=== PATIENT | female | born 1995 | race Caucasian/White ===

== ENCOUNTER 2019-09-14 08:45 | Inpatient (IN) | payer OTHER ==
[2019-09-14] MEDS ORDERED: LIDOCAINE 1% INJ-PF (10 MG/ML) 30 ML SDV ONE (09:37)
[2019-09-14] MEDS ORDERED: MISOPROSTOL 0.2 MG TABLET ONE (09:37)
[2019-09-14] MEDS ORDERED: OXYTOCIN 10 UNIT/ML VIAL ONE (09:37)
[2019-09-14] MEDS ORDERED: OXYTOCIN/NORMAL SALINE 20 UNIT/1,000 ML RTUINJ ONE (09:37)
[2019-09-14 09:51] LABS: ABSOLUTE BASOPHILS # (AUTO) 0.1 10^3/uL (0.0-0.2); ABSOLUTE EOSINOPHILS # (AUTO) 0.1 10^3/uL (0.0-0.6); ABSOLUTE LYMPHOCYTES (AUTO) 3.2 10^3/uL (0.5-4.7); ABSOLUTE MONOCYTES (AUTO) 0.7 10^3/uL (0.1-1.4); ABSOLUTE NEUT (AUTO) 10.2 10^3/uL (1.7-8.2); BASOPHILS % (AUTO) 0.4 % (0-2); EOSINOPHILS % (AUTO) 0.7 % (0-6); HEMATOCRIT 37.2 % (36.0-47.0); HEMOGLOBIN 12.9 g/dL (12.0-15.5); LYMPHOCYTES % (AUTO) 22.3 % (13-45); MEAN CORPUSCULAR HEMOGLOBIN 32.3 pg (27.0-33.4); MEAN CORPUSCULAR HGB CONC 34.8 g/dL (32.0-36.0); MEAN CORPUSCULAR VOLUME 93 fl (80-97); MONOCYTES % (AUTO) 4.7 % (3-13); PLATELET COUNT 315 10^3/uL (150-450); RED CELL DISTRIBUTION WIDTH 14.5 % (11.5-14.0); SEGMENTED NEUTROPHILS % (AUTO) 71.9 % (42-78); TOTAL CELLS COUNTED % (AUTO) 100 %; WHITE BLOOD COUNT 14.2 10^3/uL (4.0-10.5)
[2019-09-14] MEDS ORDERED: ACETAMINOPHEN WITH CODEINE #3 TABLET ONE (10:05)
--- NOTE | 2019-09-14 10:49 | Admission Physical ---
Datetime Report Generated by CPN: 09/14/2019 10:49 CURRENT ADMISSION Chief Complaint: Uterine Contractions Indication for Induction: Not Applicable Admit Impression : Term, Intrauterine ; Active Labor Admit Impression- Other: 490 cervix per RN on arrival with SROM Admit Plan: Admit to Unit; Initiate Labor Protocol Admit Plan- Other: GBS neg OBSTETRICAL HISTORY EDC: 09/26/2019 00:00 : 1 Para: 0 Term: 0 : 0 SAB: 0 IAB: 0 Ectopic: 0 Livin Cesareans: 0 VBACs: 0 Multiple Births: 0 PHYSICAL EXAM General: Normal HEENT: Deferred Neurologic: Normal Thyroid: Deferred Heart: Normal Lungs: Normal Breast: Deferred Back: Deferred Abdomen: Normal Genitourinary Exam: Normal Extremities: Normal DTRs: Deferred Pelvic Type: Adequate FETUS A EGA: 38.2 Monitoring: External US FHR- Baseline: 155 Variability: Moderate 6-25bpm Accelerations: 15X15 Decelerations: None FHR Category: Category I Presentation: Vertex Admit Comment: Transfer 32 wks from [place], do not have records available Pt reports adequate care JAMES by LMP 09/26/19, c/w 6 wk sono GBS neg PLANS FOR LABOR AND DELIVERY Labor and Delivery: None Pain Management: Medications; Epidural Feeding Preference: Breast Benefit of Breast Feed Discussed: Yes Circumcision: Yes INFORMED CONSENT Assignment: Jen Crocker MD Signature: with User ID: Marge : with User ID: Marge
[2019-09-14] MEDS ORDERED: MEASLES,MUMPS&RUBELLA VACC/PF 0.5 ML VIAL SUBCUT PRN (11:02)
[2019-09-14] MEDS ORDERED: DIPH/PERTUSS(ACELL)/TETANUS VAC/PF 0.5 ML SYR (>=10YO) IM PRN (11:02)
[2019-09-14] MEDS ORDERED: OXYTOCIN/NORMAL SALINE 20 UNIT/1,000 ML RTUINJ IV PRN (11:02)
[2019-09-14] MEDS ORDERED: ZOLPIDEM TARTRATE 5 MG TABLET PO PRN (11:02)
[2019-09-14] MEDS ORDERED: DIBUCAINE 1% OINTMENT 28 GM TP PRN (11:02)
[2019-09-14] MEDS ORDERED: BENZOCAINE/MENTHOL AEROSOL SPRAY 56 ML TOP PRN (11:02)
[2019-09-14 11:21] LABS: APPEARANCE,URINE SLIGHTLY-CLOUDY; BILIRUBIN,URINE NEGATIVE (NEGATIVE); COLOR,URINE YELLOW; GLUCOSE, URINE NEGATIVE (NEGATIVE); KETONES,URINE 20 mg/dL (NEGATIVE); LEUKOCYTE ESTERASE,URINE NEGATIVE (NEGATIVE); NITRITE,URINE NEGATIVE (NEGATIVE); PROTEIN,URINE 30 mg/dL (NEGATIVE); URINE SPECIFIC GRAVITY 1.027; UROBILINOGEN,URINE NEGATIVE mg/dL (<2.0)
[2019-09-14 11:54] LABS: URINE AMPHETAMINES SCREEN NEGATIVE; URINE BARBITURATES SCREEN NEGATIVE; URINE BENZODIAZEPINES SCREEN NEGATIVE; URINE COCAINE SCREEN NEGATIVE; URINE MARIJUANA (THC) SCREEN NEGATIVE; URINE METHADONE SCREEN NEGATIVE; URINE PHENCYCLIDINE SCREEN NEGATIVE
--- NOTE | 2019-09-14 13:22 | Delivery Summary ---
Del Sum A-C Datetime Report Generated by CPN: 09/14/2019 13:21 DELIVERY PERSONNEL DELIVERY PERSONNEL: [id number] Delivery Doctor:: Ani Butts CNM Labor and Delivery Nurse:: Imani Yadav RNpiping blocker Nurse:: Sonam Byers RN Nursery Nurse:: Shara Bond RN MATERNAL INFORMATION Delivery Anesthesia: None Medications After Delivery: Pitocin Bolus-Please Comment; Pitocin Drip 20 Units/1000ml NSS; Cytotec 1000mcg Per Rectum/Vagina Meds After Delivery Comment: 20 Units Pitocin/1000ml NS Delivery QBL: 500 Maternal Complications: Precipitous Labor (<3hrs) Provider Comments: SVDVM over intact perineum, precipitous labor. OA to CHIDI, vigorous to mothers abd. Cord clamped after 2 min and cut per FOB, 3vc noted. Placenta spont via gordon. Laceration repairs as above. Mother and infant stable. QBL 500. Apgars 9,9. LABOR SUMMARY EDC: 09/26/2019 00:00 No. Babies in Womb: 1 Attempted: No Labor Anesthesia: None LABOR INFORMATION Reason for Induction: Not Applicable Onset of Labor: 09/14/2019 07:00 Complete Dilatation: 09/14/2019 09:32 Oxytocin: N/A Group B Beta Strep: Negative Antibiotics # of Doses: 0 Antibiotics Time of Last Dose: n/a Name of Antibiotic Given: n/a Steroids Given: None Reason Steroids Not Administered: Not Applicable MEMBRANES Membranes Rupture Method: Spontaneous Rupture of Membranes: 09/14/2019 09:06 Length of Rupture (hr): 0.60 Amniotic Fluid Color: Clear Amniotic Fluid Amount: Small Amniotic Fluid Odor: None STAGES OF LABOR Stage 1 hr: 2 Stage 1 min: 32 Stage 2 hr: 0 Stage 2 min: 10 Stage 3 hr: 0 Stage 3 min: 6 Total Time in Labor hr: 2 Total Time in Labor min: 48 VAGINAL DELIVERY Episiotomy: None Laceration #1: Vaginal Laceration Extension #1: Second Degree Other Laceration: left labial 2nd Degree Laceration Repair: Yes Laceration Repair Note: Labia repair with 3.0 chromic, lidocaine used 2.0 chromic for vaginal repair with lidocaine Sponge Count Correct: N/A Sharps Count Correct: N/A CSECTION DELIVERY Primary Indication: N/A Secondary Indication: N/A CSection Incidence: N/A Labor: N/A Elective: N/A CSection Incision: N/A BABY A INFORMATION Delivery Date/Time: 09/14/2019 09:42 Method of Delivery: Vaginal Nurse Controlled Delivery: No Born in Route : No : N/A Forceps: N/A Vacuum Extraction: N/A Shoulder Dystocia : No PRESENTATION/POSITION BABY A Presentation: Cephalic Cephalic Presentation: Vertex Vertex Position: Right Occipital Anterior Breech Presentation: N/A PLACENTA INFORMATION BABY A Placenta Delivery Time : 09/14/2019 09:48 Placenta Method of Delivery: Spontaneous Placenta Status: Delivered SCORES BABY A Heart Rate 1 min: >100 bpm Resp Effort 1 min: Good Cry Reflex Irritability 1 min: Cough or Sneeze or Pulls Away Muscle Tone 1 min: Active Motion Color 1 min: Body [place], Extremities Blue Resuscitation Effort 1 min: Tactile Stimulation SCORE 1 MIN: 9 Heart Rate 5 min: >100 bpm Resp Effort 5 min: Good Cry Reflex Irritability 5 min: Cough or Sneeze or Pulls Away Muscle Tone 5 min: Active Motion Color 5 min: Body [place], Extremities Blue Resuscitation Effort 5 min: Tactile Stimulation SCORE 5 MIN: 9 INFANT INFORMATION BABY A Gestational Age at Delivery: 38.2 Gestational Status: Early Term- 37- 38.6 Weeks Infant Outcome : Liveborn Infant Condition : Stable Sex: Male IDENTIFICATION BABY A Verification Date/Time: 09/14/2019 09:59 ID Band Number: [id number] Mother's Name Verified: Yes Infant RN Verifying : Eloisa Ramospin. C Kiron RN WEIGHT/LENGTH BABY A Infant Birthweight (gm): 3067 Weight (lb): 6 Infant Weight (oz): 12 CORD INFORMATION BABY A No. Cord Vessels: 3 Nuchal Cord : N/A Cord Blood Taken: Yes-For Storage (Mom's Blood type +) Infant Suction: None ASSESSMENT BABY A Infant Complications: None Physical Findings at Delivery: Within Normal Limits Infant Care By: BBAIDY RN Transferred To: Remains with Mother BABY B INFORMATION : N/A SIGNATURES Assignment: Jen Crocker MD Signature: with User ID: [email or web address] : with User ID: Marge : I was personally available for consultation and serving as supervising physician for the MLP.
[2019-09-14] MEDS ORDERED: IBUPROFEN 800 MG TABLET ONE (14:06)
[2019-09-14] MEDS: IBUPROFEN 800 MG TABLET PO SCH ×2 (14:08→22:14)
--- NOTE | 2019-09-14 15:59 | Warning Signs in Babies ---
VOD Warning Signs Datetime Report Generated by [facility]: 09/14/2019 15:58 VOD#608 -Warning Signs in Babies: Viewed with Parent(s)/Family (09/14/2019 15:57:Imani Yadav RN)
[2019-09-14] MEDS ORDERED: FERROUS SULFATE 325 MG TABLET PO ONE (18:03)
[2019-09-14] MEDS ORDERED: DOCUSATE SODIUM 100 MG CAPSULE ONE (18:03)
[2019-09-14] MEDS: FERROUS SULFATE 325 MG TABLET PO SCH (18:05)
[2019-09-14] MEDS: DOCUSATE SODIUM 100 MG CAPSULE PO SCH (18:05)
[2019-09-14] MEDS ORDERED: BENZOCAINE/MENTHOL AEROSOL SPRAY 56 ML ONE (19:21)
[2019-09-15] MEDS: IBUPROFEN 800 MG TABLET PO SCH ×3 (05:30→21:48)
[2019-09-15 07:09] LABS: ABSOLUTE EOSINOPHILS # (AUTO) 0.1 10^3/uL (0.0-0.6); ABSOLUTE LYMPHOCYTES (AUTO) 2.6 10^3/uL (0.5-4.7); ABSOLUTE MONOCYTES (AUTO) 0.6 10^3/uL (0.1-1.4); ABSOLUTE NEUT (AUTO) 9.3 10^3/uL (1.7-8.2); BASOPHILS % (AUTO) 0.2 % (0-2); EOSINOPHILS % (AUTO) 0.8 % (0-6); HEMATOCRIT 30.5 % (36.0-47.0); LYMPHOCYTES % (AUTO) 20.5 % (13-45); MEAN CORPUSCULAR HEMOGLOBIN 32.9 pg (27.0-33.4); MEAN CORPUSCULAR HGB CONC 34.8 g/dL (32.0-36.0); MEAN CORPUSCULAR VOLUME 94 fl (80-97); MONOCYTES % (AUTO) 5.1 % (3-13); PLATELET COUNT 250 10^3/uL (150-450); RED BLOOD COUNT 3.23 10^6/uL (3.72-5.28); RED CELL DISTRIBUTION WIDTH 14.7 % (11.5-14.0); SEGMENTED NEUTROPHILS % (AUTO) 73.4 % (42-78); TOTAL CELLS COUNTED % (AUTO) 100 %; WHITE BLOOD COUNT 12.6 10^3/uL (4.0-10.5)
[2019-09-15 07:17] LABS: HEMOGLOBIN 10.6 g/dL (12.0-15.5)
[2019-09-15] MEDS: SENNOSIDES/DOCUSATE 8.6-50 MG 1 EACH TABLET PO SCH (11:08)
[2019-09-15] MEDS: PRENATAL VITAMIN W DHA CAPSULE PO SCH (11:08)
[2019-09-15] MEDS: DOCUSATE SODIUM 100 MG CAPSULE PO SCH ×2 (11:08→18:04)
[2019-09-15] MEDS: FERROUS SULFATE 325 MG TABLET PO SCH ×2 (11:08→18:04)
--- NOTE | 2019-09-15 12:38 | PDOC PROGRESS REPORT ---
Subjective-OB Progress Note for:: 09/15/19 Subjective: Pt doing well, no concerns. She reports light bleeding, reg diet and voiding without difficulty. Physical Exam (OB) Vital Signs: Temp Pulse Resp BP Pulse Ox 97.5 F 65 16 108/73 99 09/15/19 07:57 09/15/19 07:57 09/15/19 07:57 09/15/19 07:57 09/15/19 07:57 Intake & Output 09/14/19 09/15/19 09/16/19 06:59 06:59 06:59 Weight 91.3 kg - Lochia Lochia Amount: Small 10-25 ml Lochia Color: Rubra/Red - Abdomen Description: Soft Hernia Present: No Fundal Description: Firm, Midline Fundal Height: u/u - u/2 Objective-Diagnostic Laboratory: 09/15/19 06:27 09/15/19 06:27 WBC 12.6 H RBC 3.23 L Hgb 10.6 L D Hct 30.5 L MCV 94 MCH 32.9 MCHC 34.8 RDW 14.7 H Plt Count 250 Seg Neutrophils % 73.4 Assessment and Plan(PN) - Assessment and Plan (1) Normal course Is this a current diagnosis for this admission?: Yes (2) Labor, precipitous, delivered Is this a current diagnosis for this admission?: Yes (3) Laceration, obstetrical, second degree Is this a current diagnosis for this admission?: Yes (4) Vaginal delivery Is this a current diagnosis for this admission?: Yes - Time Spent with Patient Time with patient: Less than 15 minutes Medications reviewed and adjusted accordingly: Yes - Disposition Anticipated Discharge: Home Within: within 24 hours
[2019-09-16] MEDS: IBUPROFEN 800 MG TABLET PO SCH (05:10)
[2019-09-16 07:48] VITALS: BP 113/70
--- NOTE | 2019-09-16 08:53 | PDOC DISCHARGE SUMMARY ---
Impression - Admit/DC Date/PCP Admission Date/Primary Care Provider: 09/14/19 09:11 Discharge Date: 09/16/19 - Discharge Diagnosis (1) Normal course Is this a current diagnosis for this admission?: Yes (2) Labor, precipitous, delivered Is this a current diagnosis for this admission?: Yes (3) Laceration, obstetrical, second degree Is this a current diagnosis for this admission?: Yes (4) Vaginal delivery Is this a current diagnosis for this admission?: Yes - Additional Information Resuscitation Status: Full Code Discharge Diet: Regular Discharge Activity: Activity As Tolerated, No Lifting Over 10 Pounds, No Lifting/Push/Pulling, No tub bath Referrals: [facility] [Provider Group] (Please call [facility] for a 4 week follow up. ) Prescriptions: Ibuprofen [Motrin 800 mg Tablet] 800 mg PO Q8HP PRN #60 tablet PRN Reason: Home Medications: Famotidine [Pepcid 20 mg Tablet] 20 mg PO DAILY 09/14/19 Vits96/Iron Fum/Folic [ Tablet] 1 each PO DAILY 09/14/19 Ibuprofen [Motrin 800 mg Tablet] 800 mg PO Q8HP PRN #60 tablet 09/16/19 HPI Gestational Age: 38 Reason(s) for Admission: Onset of Labor Procedures: NST Intrapartum Procedure(s): Spontaneous Vaginal Delivery Complication(s): Laceration-Vaginal, Laceration-Labial Laceration-Degree: 2nd Results Laboratory Results: WBC 12.6 10^3/uL (4.0-10.5) H 09/15/19 06:27 RBC 3.23 10^6/uL (3.72-5.28) L 09/15/19 06:27 Hgb 10.6 g/dL (12.0-15.5) L D 09/15/19 06:27 Hct 30.5 % (36.0-47.0) L 09/15/19 06:27 MCV 94 fl (80-97) 09/15/19 06:27 MCH 32.9 pg (27.0-33.4) 09/15/19 06:27 MCHC 34.8 g/dL (32.0-36.0) 09/15/19 06:27 RDW 14.7 % (11.5-14.0) H 09/15/19 06:27 Plt Count 250 10^3/uL (150-450) 09/15/19 06:27 Lymph % (Auto) 20.5 % (13-45) 09/15/19 06:27 [place] % (Auto) 5.1 % (3-13) 09/15/19 06:27 Eos % (Auto) 0.8 % (0-6) 09/15/19 06: Baso % (Auto) 0.2 % (0-2) 09/15/19 06:27 Absolute Neuts (auto) 9.3 10^3/uL (1.7-8.2) H 09/15/19 06:27 Absolute Lymphs (auto) 2.6 10^3/uL (0.5-4.7) 09/15/19 06:27 Absolute Monos (auto) 0.6 10^3/uL (0.1-1.4) 09/15/19 06:27 Absolute Eos (auto) 0.1 10^3/uL (0.0-0.6) 09/15/19 06:27 Absolute Basos (auto) 0.0 10^3/uL (0.0-0.2) 09/15/19 06:27 Seg Neutrophils % 73.4 % (42-78) 09/15/19 06:27 Urine Color YELLOW 09/14/19 09:00 Urine Appearance SLIGHTLY-CLOUDY 09/14/19 09:00 Urine pH 6.0 (5.0-9.0) 09/14/19 09:00 Ur Specific Newborn 1.027 09/14/19 09:00 Urine Protein 30 mg/dL (NEGATIVE) H 09/14/19 09:00 Urine Glucose (UA) NEGATIVE mg/dL (NEGATIVE) 09/14/19 09:00 Urine Ketones 20 mg/dL (NEGATIVE) H 09/14/19 09:00 Urine Blood NEGATIVE (NEGATIVE) 09/14/19 09:00 Urine Nitrite NEGATIVE (NEGATIVE) 09/14/19 09:00 Urine Bilirubin NEGATIVE (NEGATIVE) 09/14/19 09:00 Urine Urobilinogen NEGATIVE mg/dL (<2.0) 09/14/19 09:00 Ur Leukocyte Esterase NEGATIVE (NEGATIVE) 09/14/19 09:00 Urine WBC (Auto) 4 /HPF 09/14/19 09:00 Urine RBC (Auto) 3 /HPF 09/14/19 09:00 Squamous Epi Cells Auto 2 /HPF 09/14/19 09:00 Urine Mucus (Auto) MANY /LPF 09/14/19 09:00 Urine Ascorbic Acid NEGATIVE (NEGATIVE) 09/14/19 09:00 Urine Opiates Screen NEGATIVE 09/14/19 09:00 Urine Methadone Screen NEGATIVE 09/14/19 09:00 Ur Barbiturates Screen NEGATIVE 09/14/19 09:00 Ur Phencyclidine Scrn NEGATIVE 09/14/19 09:00 Ur Amphetamines Screen NEGATIVE 09/14/19 09:00 U Benzodiazepines Scrn NEGATIVE 09/14/19 09:00 Urine Cocaine Screen NEGATIVE 09/14/19 09:00 U Marijuana (THC) Screen NEGATIVE 09/14/19 09:00 Blood Type A POSITIVE 09/14/19 09:30 Antibody Screen NEGATIVE 09/14/19 09:30 Plan Plan of Treatment: f/u at [facility] 4 wks Time Spent: Less than 30 Minutes
[2019-09-16] MEDS: SENNOSIDES/DOCUSATE 8.6-50 MG 1 EACH TABLET PO SCH (10:09)
[2019-09-16] MEDS: FERROUS SULFATE 325 MG TABLET PO SCH (10:10)
[2019-09-16] MEDS: PRENATAL VITAMIN W DHA CAPSULE PO SCH (10:10)
[2019-09-16] MEDS: DOCUSATE SODIUM 100 MG CAPSULE PO SCH (10:10)
== END 2019-09-16 13:53 | disposition home or self-care (01) | DRG 807 ==
LOC: LC 08:45 → LR 09:11 → 2S 20:30
PROVIDERS: ADMIT Obstetrics & Gynecology; ATTEND Obstetrics & Gynecology
PROC: 10E0XZZ Delivery of Products of Conception, External Approach (ICD-10-PCS; principal; 2019-09-14)
PROC: 0KQM0ZZ Repair Perineum Muscle, Open Approach (ICD-10-PCS; 2019-09-14)
PROC: 3E0234Z Introduction of Serum, Toxoid and Vaccine into Muscle, Percutaneous Approach (ICD-10-PCS; 2019-09-16)
DX: O62.3 Precipitate labor (principal); O70.1 Second degree perineal laceration during delivery; Z37.0 Single live birth; Z3A.38 38 weeks gestation of pregnancy; Z23 Encounter for immunization
CPT/HCPCS: 36415; 80307; 81001; 85025; 86592; 86850; 86900; 86901; 90715; J2590; J3490

== ENCOUNTER 2020-03-06 10:09 | Emergency (ER) | payer OTHER ==
[2020-03-06] MEDS ORDERED: NORMAL SALINE 1000 ML 1,000 ML IV PRN (10:27)
[2020-03-06] MEDS ORDERED: METOCLOPRAMIDE HCL 10 MG TABLET PO ONE (10:27)
--- NOTE | 2020-03-06 10:30 | ER Document Report ---
ED Medical Screen (RME) - General Chief Complaint: Nausea/Vomiting Stated Complaint: NAUSEA/VOMITING,CHILLS Time Seen by Provider: 03/06/20 10:24 Primary Care Provider: ELLY CARCAMO MD [Primary Care Provider] - Follow up as needed Mode of Arrival: Ambulatory Information source: Patient Notes: 24-year-old female presents to ED for nausea and vomiting. She states she had a home test positive a week ago she been nausea and vomiting for week. She states last menstrual period was in December. She has not been told to get into the PRIMARY CARE NURSE as yet. I have ordered a IV fluids, Reglan, blood urine and transvaginal ultrasound. I have greeted and performed a rapid initial assessment of this patient. A comprehensive ED assessment and evaluation of the patient, analysis of test results and completion of medical decision making process will be conducted by an additional ED providers. - Related Data Allergies/Adverse Reactions: No Known Allergies Allergy (Verified 03/06/20 10:24) Physical Exam - Vital signs Vitals: Temp Pulse Resp BP Pulse Ox 98.3 F 104 H 18 130/87 H 97 03/06/20 10:16 03/06/20 10:16 03/06/20 10:16 03/06/20 10:16 03/06/20 10:16 Course - Vital Signs Vital signs: Temp Pulse Resp BP Pulse Ox 98.3 F 104 H 18 130/87 H 97 03/06/20 10:16 03/06/20 10:16 03/06/20 10:16 03/06/20 10:16 03/06/20 10:16 Doctor's Discharge - Discharge Referrals: ELLY CARCAMO MD [Primary Care Provider] - Follow up as needed
--- NOTE | 2020-03-06 10:50 | ER Document Report ---
ED General - General Chief Complaint: Nausea/Vomiting Stated Complaint: NAUSEA/VOMITING,CHILLS Time Seen by Provider: 03/06/20 10:24 Primary Care Provider: ELLY CARCAMO MD [Primary Care Provider] - Follow up as needed Mode of Arrival: Ambulatory Notes: 24-year-old G2, P1 female 5 months presents with abdominal pressure queasiness nausea vomiting intolerance of p.o. for almost a week now. Positive test 7 days ago. She did not have any control methods and m issed her appointment and this is both undesired and unplanned, planning to [facility] with [facility] but needs to come here first for a positive test. - Related Data Allergies/Adverse Reactions: No Known Allergies Allergy (Verified 03/06/20 10:24) Past Medical History - General Information source: Patient - Social History Smoking Status: Never Smoker Chew tobacco use (# tins/day): No Frequency of alcohol use: None Drug Abuse: None Family History: None Patient has homicidal ideation: No Review of Systems - Review of Systems Notes: REVIEW OF SYSTEMS GEN: Denies fever, chills, weight loss ENT: Denies sore throat, nasal discharge, ear pain EYES: Denies blurry vision, eye pain, discharge CV: Denies chest pain, palpitations, edema RESP: Denies cough, shortness of breath, wheezing GI: Pressure nausea vomiting MSK: Denies joint pain/swelling, edema, SKIN: Denies rash, skin lesions LYMPH: Denies swollen glands/lymph nodes NEURO: Denies headache, focal weakness or numbness, dizziness PSYCH: Denies depression, suicidal or homicidal ideation PHYSICAL EXAMINATION General: No acute distress, well-nourished Head: Atraumatic, normocephalic ENT: Mouth normal, oropharynx moist, no exudates or tonsillar enlargement Eyes: Conjunctiva normal, pupils equal, lids normal Neck: No JVD, supple, no guarding CVS: Normal rate, regular rhythm, no murmurs Resp: No resp distress, equal and normal breath sounds bilaterally GI: Nondistended, soft, no tenderness to palpation, no rebound or guarding Ext: No deformities, no edema, normal range of motion in upper and lower ext Back: No CVA or midline TTP Skin: No rash, warm Lymphatic: No lymphadeopathy noted Neuro: Awake, alert. Face symmetric. GCS 15. Physical Exam - Vital signs Vitals: Temp Pulse Resp BP Pulse Ox 98.3 F 104 H 18 130/87 H 97 03/06/20 10:16 03/06/20 10:16 03/06/20 10:16 03/06/20 10:16 03/06/20 10:16 Course - Re-evaluation Re-evalutation: 03/06/20 10:49 Undesired first trimester with nausea and vomiting versus hyperemesis. Minimal pain and tenderness. Planning to terminate. We will treat symptoms. I canceled the ultrasound and will instead check a beta. Very minimal abdominal pressure usually after vomiting with no tenderness. Doubt ectopic. Better after fluids and meds. Prescribe Reglan will [facility] with [facility] I have discussed with the patient there likely diagnosis, aftercare plan, follow-up plans and my usual and customary return precautions. They verbalized understanding of this. 03/06/20 11:26 - Vital Signs Vital signs: Temp Pulse Resp BP Pulse Ox 98.3 F 104 H 18 130/87 H 97 03/06/20 10:16 03/06/20 10:16 03/06/20 10:16 03/06/20 10:16 03/06/20 10:16 - Laboratory Result Diagrams: 03/06/20 10:34 03/06/20 10:34 Laboratory results interpreted by me: 03/06/20 03/06/20 03/06/20 10:34 10:34 10:34 WBC 11.4 H Plt Count 474 H Lymph % (Auto) 10.7 L [place] % (Auto) 2.9 L Absolute Neuts (auto) 9.8 H Seg Neutrophils % 85.9 H Urine Protein 30 H Urine Ketones 80 H Urine Urobilinogen 2.0 H Urine HCG, Qual POSITIVE H Discharge - Discharge Clinical Impression: Nausea/vomiting in Condition: Good Disposition: HOME, SELF-CARE Instructions: Antinausea Medication ([facility]), ([facility]) Additional Instructions: Please [facility] with [facility] within the next 1 week to discuss therapeutic /termination of Prescriptions: Promethazine HCl [Phenergan 25 mg Tablet] 1 - 2 tab PO Q6H PRN #15 tablet PRN Reason: Referrals: ELLY CARCAMO MD [Primary Care Provider] - Follow up as needed
[2020-03-06 10:51] LABS: ABSOLUTE LYMPHOCYTES (AUTO) 1.2 10^3/uL (0.5-4.7); ABSOLUTE MONOCYTES (AUTO) 0.3 10^3/uL (0.1-1.4); ABSOLUTE NEUT (AUTO) 9.8 10^3/uL (1.7-8.2); BASOPHILS % (AUTO) 0.4 % (0-2); EOSINOPHILS % (AUTO) 0.1 % (0-6); HEMATOCRIT 39.7 % (36.0-47.0); HEMOGLOBIN 13.8 g/dL (12.0-15.5); LYMPHOCYTES % (AUTO) 10.7 % (13-45); MEAN CORPUSCULAR HEMOGLOBIN 31.7 pg (27.0-33.4); MEAN CORPUSCULAR HGB CONC 34.7 g/dL (32.0-36.0); MEAN CORPUSCULAR VOLUME 92 fl (80-97); MONOCYTES % (AUTO) 2.9 % (3-13); PLATELET COUNT 474 10^3/uL (150-450); RED BLOOD COUNT 4.34 10^6/uL (3.72-5.28); RED CELL DISTRIBUTION WIDTH 13.9 % (11.5-14.0); SEGMENTED NEUTROPHILS % (AUTO) 85.9 % (42-78); TOTAL CELLS COUNTED % (AUTO) 100 %; WHITE BLOOD COUNT 11.4 10^3/uL (4.0-10.5)
[2020-03-06] MEDS ORDERED: METOCLOPRAMIDE HCL INJ/PF 10 MG/2 ML SDV IV ONE (10:52)
[2020-03-06 10:55] LABS: APPEARANCE,URINE SLIGHTLY-CLOUDY; BILIRUBIN,URINE NEGATIVE (NEGATIVE); GLUCOSE, URINE NEGATIVE (NEGATIVE); KETONES,URINE 80 mg/dL (NEGATIVE); LEUKOCYTE ESTERASE,URINE NEGATIVE (NEGATIVE); NITRITE,URINE NEGATIVE (NEGATIVE); PROTEIN,URINE 30 mg/dL (NEGATIVE)
[2020-03-06 10:56] LABS: COLOR,URINE YELLOW
[2020-03-06 11:26] LABS: ALBUMIN 4.9 g/dL (3.5-5.0); ALKALINE PHOSPHATASE 110 U/L (38-126); ANION GAP 15 (5-19); ASPARTATE AMINO TRANSFERASE 20 U/L (14-36); BILIRUBIN,DIRECT 0.2 mg/dL (0.0-0.4); BILIRUBIN,TOTAL 0.6 mg/dL (0.2-1.3); BLOOD UREA NITROGEN 9 mg/dL (7-20); CALCIUM 10.1 mg/dL (8.4-10.2); CARBON DIOXIDE 25 mmol/L (22-30); CHLORIDE 102 mmol/L (98-107); GLUCOSE 113 mg/dL (75-110); POTASSIUM 4.1 mmol/L (3.6-5.0); TOTAL PROTEIN 8.3 g/dL (6.3-8.2)
[2020-03-06 11:44] VITALS: BP 102/70
== END 2020-03-06 11:46 | disposition home or self-care (01) ==
LOC: ER 10:09
DX: O26.91 Pregnancy related conditions, unspecified, first trimester (principal); R11.2 Nausea with vomiting, unspecified
CPT/HCPCS: 99285; 96361; 96374; 36415; 84702; 85025; 81025; 80053; 81001; J2765; J7030

== ENCOUNTER 2020-03-23 08:19 | Emergency (ER) | payer OTHER ==
[2020-03-23] MEDS ORDERED: ONDANSETRON HCL INJ/PF 4 MG/2 ML SDV IV ONE (09:08)
[2020-03-23] MEDS ORDERED: NORMAL SALINE 1000 ML 1,000 ML IV ONE (09:08)
[2020-03-23 09:10] LABS: ABSOLUTE BASOPHILS # (AUTO) 0.1 10^3/uL (0.0-0.2); ABSOLUTE LYMPHOCYTES (AUTO) 1.2 10^3/uL (0.5-4.7); ABSOLUTE MONOCYTES (AUTO) 0.3 10^3/uL (0.1-1.4); ABSOLUTE NEUT (AUTO) 7.6 10^3/uL (1.7-8.2); BASOPHILS % (AUTO) 0.6 % (0-2); EOSINOPHILS % (AUTO) 0.2 % (0-6); HEMATOCRIT 37.2 % (36.0-47.0); LYMPHOCYTES % (AUTO) 13.3 % (13-45); MEAN CORPUSCULAR HEMOGLOBIN 32.6 pg (27.0-33.4); MEAN CORPUSCULAR VOLUME 93 fl (80-97); MONOCYTES % (AUTO) 3.6 % (3-13); PLATELET COUNT 470 10^3/uL (150-450); RED CELL DISTRIBUTION WIDTH 13.9 % (11.5-14.0); SEGMENTED NEUTROPHILS % (AUTO) 82.3 % (42-78); TOTAL CELLS COUNTED % (AUTO) 100 %; WHITE BLOOD COUNT 9.2 10^3/uL (4.0-10.5)
[2020-03-23 09:23] LABS: APPEARANCE,URINE SLIGHTLY-CLOUDY; BILIRUBIN,URINE NEGATIVE (NEGATIVE); GLUCOSE, URINE NEGATIVE (NEGATIVE); KETONES,URINE 80 mg/dL (NEGATIVE); LEUKOCYTE ESTERASE,URINE SMALL (NEGATIVE); NITRITE,URINE NEGATIVE (NEGATIVE); PROTEIN,URINE 100 mg/dL (NEGATIVE); URINE SPECIFIC GRAVITY 1.031
[2020-03-23 09:24] LABS: COLOR,URINE DARK YELLOW
[2020-03-23 09:28] LABS: ALBUMIN 4.4 g/dL (3.5-5.0); ALKALINE PHOSPHATASE 100 U/L (38-126); ANION GAP 14 (5-19); ASPARTATE AMINO TRANSFERASE 20 U/L (14-36); BILIRUBIN,DIRECT 0.3 mg/dL (0.0-0.4); BILIRUBIN,TOTAL 0.6 mg/dL (0.2-1.3); BLOOD UREA NITROGEN 6 mg/dL (7-20); CALCIUM 9.8 mg/dL (8.4-10.2); CARBON DIOXIDE 22 mmol/L (22-30); CHLORIDE 104 mmol/L (98-107); GLUCOSE 114 mg/dL (75-110); TOTAL PROTEIN 7.8 g/dL (6.3-8.2)
--- NOTE | 2020-03-23 10:29 | ER Document Report ---
ED General - General Chief Complaint: Nausea/Vomiting Stated Complaint: VOMITING/NAUSEA Time Seen by Provider: 03/23/20 09:04 Primary Care Provider: ELLY CARCAMO MD [Primary Care Provider] - Follow up as needed - HPI Notes: Chief complaint: Vomiting History of present illness: 24-year-old female 2 para 1 currently at 9 weeks EGA by an SWIMMING POOL PLASTERER HELPER provider in [facility] for termination of the and now presents with complications related to the procedure. She was given prescription for oral methotrexate and Cytotec. She took 1 dose this morning and has had a large amount of vomiting since then. They gave her some promethazine tried this for nausea but found it ineffective. She is not having any fever, chills, vaginal bleeding, dysuria or abdominal pain. She received a dose of oral Zofran on arrival here along with a liter of normal saline. She was asymptomatic by the time of my examination. Non-smoker. No prior hospitalizations or surgery other than childbirth. No regular medications. No known allergies. - Related Data Allergies/Adverse Reactions: No Known Allergies Allergy (Verified 03/06/20 10:24) Home Medications: Promethazine Past Medical History - General Information source: Patient, [facility] Records - Social History Smoking Status: Never Smoker Chew tobacco use (# tins/day): No Drug Abuse: None Family History: None Review of Systems - Review of Systems Notes: Constitutional: Negative for fever. HENT: Negative for sore throat. Eyes: Negative for visual changes. Cardiovascular: Negative for chest pain. Respiratory: Negative for shortness of breath. Gastrointestinal: As per HPI. Genitourinary: Negative for dysuria. Musculoskeletal: Negative for back pain. Skin: Negative for rash. Neurological: Negative for headaches, weakness or numbness. 10 point ROS negative except as marked above and in HPI. Physical Exam - Vital signs Vitals: Temp Pulse Resp BP Pulse Ox 97.5 F 111 H 16 127/79 H 100 03/23/20 08:26 03/23/20 08:26 03/23/20 08:26 03/23/20 08:03/23/20 08:26 - Notes Notes: GENERAL: Well-developed well-nourished female of approximately stated age appearing in no acute distress. SKIN: Good turgor no rashes. HEAD: Normocephalic atraumatic. EYES: PERRLA. EOMI. Conjunctivae and sclerae clear. EARS: CANALS AND TMS CLEAR. NOSE: CLEAR. MOUTH: Moist mucosa. Good dentition. No stridor or edema. No drooling. NECK: Supple. No masses or thyromegaly. No adenopathy. Carotids 2+ without bruits. No JVD. BACK: Symmetrical without tenderness. CHEST: Respirations unlabored. Breath sounds clear and symmetrical. HEART: Regular rhythm. No murmur gallop or rub. ABDOMEN: Soft nontender without masses, organomegaly or rebound. Bowel sounds normally active. No bruits. GENITALIA: Deferred. EXTREMITIES: No edema. No calf tenderness. Cap refill less than 1.5 seconds. Dorsalis pedis and posterior tibial pulses 3+ and symmetrical. NEUROLOGICAL: GCS 15. Alert and oriented x3. Normal gait. Fluent speech. Cranial nerves II through XII intact. Sensorimotor and cerebellar normal. Normal tone. PSYCHIATRIC: Appropriate affect. Course - Re-evaluation Re-evalutation: 03/23/20 11:02 On recheck patient is currently asymptomatic taking oral fluids without difficulty. I will prescribe some Zofran for home and advised her to go ahead and take the medications prescribed previously prescribed SWIMMING POOL PLASTERER HELPER provider (methotrexate and Cytotec). She will admit the promethazine and substitute Zofran. She is strongly encouraged to contact her MANAGED SERVICES SALES CONSULTANT provider today by telephone and arrange follow-up with them. She may return here for any new or worsening problems. Findings, clinical impression and plan of treatment have been discussed with patient/family. Understanding of current findings and recommendations has been acknowledged by them and there is agreement regarding disposition and follow-up. - Vital Signs Vital signs: Temp Pulse Resp BP Pulse Ox 97.5 F 111 H 16 127/79 H 100 03/23/20 08:26 03/23/20 08:26 03/23/20 08:26 03/23/20 08:26 03/23/20 08:26 - Laboratory Result Diagrams: 03/23/20 08:54 03/23/20 08:54 Laboratory results interpreted by me: 03/23/20 03/23/20 03/23/20 08:54 08:54 08:54 Plt Count 470 H Seg Neutrophils % 82.3 H BUN 6 L Glucose 114 H Urine Protein 100 H Urine Ketones 80 H Urine Urobilinogen 2.0 H Ur Leukocyte Esterase SMALL H Discharge - Discharge Clinical Impression: Dehydration Vomiting Qualifiers: Vomiting type: unspecified Vomiting Intractability: unspecified Nausea presence: with nausea Qualified Code(s): R11.2 - Nausea with vomiting, unspecified Condition: Stable Disposition: HOME, SELF-CARE Instructions: Vomiting ([facility]) Additional Instructions: Contact your OB provider by telephone at this time for additional guidance. You should be able to continue the medications a previously prescribed although you should omit the Phenergan. We are giving you Zofran to use instead of Phenergan. Increase oral fluids. Return here as needed for new or worsening symptoms. Prescriptions: Ondansetron [Zofran Odt 4 mg Tablet] 1 - 2 tab PO Q4H PRN #15 tab.rapdis PRN Reason: For Nausea/Vomiting Referrals: ELLY CARCAMO MD [Primary Care Provider] - Follow up as needed
[2020-03-23 11:43] VITALS: BP 116/65
== END 2020-03-23 11:50 | disposition home or self-care (01) ==
LOC: ER 08:19
DX: O21.9 Vomiting of pregnancy, unspecified (principal); O99.280 Endocrine, nutritional and metabolic diseases complicating pregnancy, unspecified trimester; E86.0 Dehydration; Z79.899 Other long term (current) drug therapy; Z3A.00 Weeks of gestation of pregnancy not specified
CPT/HCPCS: 99284; 96361; 96374; 36415; 85025; 80053; 81001; J2405; J7030

== ENCOUNTER 2020-07-16 14:59 | Emergency (ER) | payer OTHER ==
[2020-07-16] MEDS ORDERED: NORMAL SALINE 1000 ML 1,000 ML IV ONE (15:36)
[2020-07-16] MEDS ORDERED: METOCLOPRAMIDE HCL INJ/PF 10 MG/2 ML SDV IV ONE (15:36)
--- NOTE | 2020-07-16 15:40 | ER Document Report ---
ED Medical Screen (RME) - General Chief Complaint: Nausea/Vomiting/Diarrhea Stated Complaint: VOMITING/NAUSEA Time Seen by Provider: 07/16/20 15:33 Primary Care Provider: ELLY CARCAMO MD [Primary Care Provider] - Follow up as needed Notes: Patient is a 24-year-old female G3, P1 who presents emergency department with a chief complaint of abdominal cramping with vomiting and diarrhea. Patient reports that she has had a positive home test with her last menstrual cycle at the end of April. Patient states that she has been unable to keep liquids down and feels dehydrated. Denies urinary symptoms. Patient reports having abdominal cramping especially with vomiting. Patient has not established care with an CARTOGRAPHIC ENGINEER at this point. - Related Data Allergies/Adverse Reactions: No Known Allergies Allergy (Verified 03/06/20 10:24) Physical Exam - Vital signs Vitals: Temp Pulse Resp BP Pulse Ox 97.7 F 90 16 132/74 H 97 07/16/20 15:02 07/16/20 15:02 07/16/20 15:02 07/16/20 15:02 07/16/20 15:02 Course - Re-evaluation Re-evalutation: 07/16/20 15:38 We will obtain basic lab work, obtain a pelvic OB ultrasound as well as urinalysis. We will start IV fluids. I have greeted and performed a rapid initial assessment of this patient. A comprehensive ED assessment and evaluation of the patient, analysis of test results and completion of the medical decision making process will be conducted by additional ED providers. - Vital Signs Vital signs: Temp Pulse Resp BP Pulse Ox 97.7 F 90 16 132/74 H 97 07/16/20 15:02 07/16/20 15:02 07/16/20 15:02 07/16/20 15:02 07/16/20 15:02 Doctor's Discharge - Discharge Referrals: ELLY CARCAMO MD [Primary Care Provider] - Follow up as needed
--- NOTE | 2020-07-16 17:35 | ER Document Report ---
ED GI/ - General Chief Complaint: Nausea/Vomiting/Diarrhea Stated Complaint: VOMITING/NAUSEA Time Seen by Provider: 07/16/20 15:33 Primary Care Provider: ELLY CARCAMO MD [ACTIVE STAFF] - Follow up as needed Mode of Arrival: Ambulatory Information source: Patient Notes: Patient presents G3, P1 although uncertain how far along she may be. Last menstrual period was in April of last year. Patient reports nausea vomiting diarrhea for the past week. Patient denies any urinary symptoms. Patient denies any abdominal tenderness. - HPI Patient complains to provider of: Abdominal pain, Diarrhea, Vomiting Onset: Last week Timing/Duration: Persistent Quality of pain: No pain Pain Level: Denies Vaginal bleeding (Compared to normal period): None Menstrual period history: Associated symptoms: Diarrhea, Nausea, Vomiting. denies: Fever, Urinary hesitancy, Urinary frequency, Urinary retention, Urinary urgency Exacerbated by: Denies Relieved by: Denies Similar symptoms previously: Yes Recently seen / treated by doctor: No - Related Data Allergies/Adverse Reactions: No Known Allergies Allergy (Verified 03/06/20 10:24) Past Medical History - General Information source: Patient - Social History Smoking Status: Never Smoker Frequency of alcohol use: None Drug Abuse: None Occupation: None Lives with: Family Family History: None - Medical History Medical History: Negative Surgical Hx: Negative Review of Systems - Review of Systems Constitutional: No symptoms reported. denies: Fever EENT: No symptoms reported Cardiovascular: No symptoms reported Respiratory: No symptoms reported. denies: Cough, Short of breath Gastrointestinal: Vomiting. denies: Abdominal pain, Diarrhea, Nausea Genitourinary: No symptoms reported. denies: Dysuria Female Genitourinary: . denies: Vaginal discharge, Vaginal bleeding Musculoskeletal: No symptoms reported Skin: No symptoms reported Hematologic/Lymphatic: No symptoms reported Neurological/Psychological: No symptoms reported Physical Exam - Vital signs Vitals: Temp Pulse Resp BP Pulse Ox 97.7 F 90 16 132/74 H 97 07/16/20 15:02 07/16/20 15:02 07/16/20 15:02 07/16/20 15:02 07/16/20 15:02 - General General appearance: Appears well, Alert In distress: None - HEENT Head: Normocephalic, Atraumatic Eyes: Normal Conjunctiva: Normal Nasal: Normal Mouth/Lips: Normal Mucous membranes: Normal Neck: Normal, Supple. No: Lymphadenopathy - Respiratory Respiratory status: No respiratory distress Chest status: Nontender Breath sounds: Normal. No: Rales, Rhonchi, Stridor, Wheezing Chest palpation: Normal - Cardiovascular Rhythm: Regular Heart sounds: S1 appreciated, S2 appreciated - Abdominal Inspection: Normal Distension: No distension Bowel sounds: Normal Tenderness: Nontender Organomegaly: No organomegaly - Back Back: Normal, Nontender. No: CVA tenderness - Extremities General upper extremity: Normal inspection, Normal ROM General lower extremity: Normal inspection, Normal ROM - Neurological Neuro grossly intact: Yes Cognition: Normal [place] Coma Scale Eye Opening: Spontaneous Severo Coma Scale Verbal: Oriented Severo Coma Scale Motor: Obeys Commands Severo Coma Scale Total: 15 - Psychological Associated symptoms: Normal affect, Normal mood - Skin Skin Temperature: Warm Skin Moisture: Dry Skin Color: Normal Course - Re-evaluation Re-evalutation: 07/16/20 19:17 Patient reports that nausea is improved at this time. Abdomen continues soft nontender. 07/16/20 19:41 Patient with laboratory evaluation consistent with dehydration, IV fluids were administered. Patient denies any abdominal pain vaginal bleeding or discharge. Patient without any emesis during her ER stay. We will plan for discharge and outpatient follow-up with [facility]. - Vital Signs Vital signs: Temp Pulse Resp BP Pulse Ox 98.5 F 82 16 140/74 H 100 07/16/20 20:14 07/16/20 20:14 07/16/20 20:14 07/16/20 20:14 07/16/20 20:14 - Laboratory Results Result Diagrams: 07/16/20 17:17 07/16/20 18:49 Laboratory Results Interpreted: 07/16/20 07/16/20 07/16/20 17:17 17:17 18:49 WBC 14.1 H RDW 15.4 H Plt Count 498 H Lymph % (Auto) 11.8 L Absolute Neuts (auto) 11.8 H Seg Neutrophils % 83.5 H Beta HCG, Quant 53523.00 H Urine Protein 30 H Urine Ketones 80 H Urine Urobilinogen 2.0 H Urine HCG, Qual POSITIVE H Labs- All tests 24 hr 07/16/20 07/16/20 07/16/20 17:17 17:17 17:17 WBC 14.1 H RBC 4.45 Hgb 13.4 Hct 39.6 MCV 89 MCH 30.0 MCHC 33.8 RDW 15.4 H Plt Count 498 H Lymph % (Auto) 11.8 L [place] % (Auto) 4.1 Eos % (Auto) 0.1 Baso % (Auto) 0.5 Absolute Neuts (auto) 11.8 H Absolute Lymphs (auto) 1.7 Absolute Monos (auto) 0.6 Absolute Eos (auto) 0.0 Absolute Basos (auto) 0.1 Seg Neutrophils % 83.5 H Sodium Cancelled Potassium Cancelled Chloride Cancelled Carbon Dioxide Cancelled Anion Gap Cancelled BUN Cancelled Creatinine Cancelled Est GFR ( Amer) Cancelled Est GFR (Non-Af Amer) Cancelled Est GFR (MDRD) Non-Af Cancelled Glucose Cancelled Calcium Cancelled Total Bilirubin Cancelled Direct Bilirubin Cancelled Neonat Total Bilirubin Cancelled Neonat Direct Bilirubin Cancelled Neonat Indirect Bili Cancelled AST Cancelled ALT Cancelled Alkaline Phosphatase Cancelled Total Protein Cancelled Albumin Cancelled Lipase EGFR Cancelled Beta HCG, Quant Cancelled Total Beta HCG Cancelled Urine Color YELLOW Urine Appearance CLEAR Urine pH 6.0 Ur Specific [place] 1.029 Urine Protein 30 H Urine Glucose (UA) NEGATIVE Urine Ketones 80 H Urine Blood NEGATIVE Urine Nitrite NEGATIVE Urine Bilirubin NEGATIVE Urine Urobilinogen 2.0 H Ur Leukocyte Esterase NEGATIVE Urine WBC (Auto) 2 Urine RBC (Auto) 0 Squamous Epi Cells Auto 2 Urine Mucus (Auto) MANY Urine Ascorbic Acid NEGATIVE Urine HCG, Qual POSITIVE H 07/16/20 07/16/20 17:17 18:49 WBC RBC Hgb Hct MCV MCH MCHC RDW Plt Count Lymph % (Auto) [place] % (Auto) Eos % (Auto) Baso % (Auto) Absolute Neuts (auto) Absolute Lymphs (auto) Absolute Monos (auto) Absolute Eos (auto) Absolute Basos (auto) Seg Neutrophils % Sodium 137.7 Potassium 4.1 Chloride 104 Carbon Dioxide 25 Anion Gap 9 BUN 8 Creatinine 0.65 Est GFR ( Amer) > 60 Est GFR (Non-Af Amer) Est GFR (MDRD) Non-Af > 60 Glucose 108 Calcium 9.3 Total Bilirubin 0.5 Direct Bilirubin 0.2 Neonat Total Bilirubin Not Reportable Neonat Direct Bilirubin Not Reportable Neonat Indirect Bili Not Reportable AST 21 ALT 13 Alkaline Phosphatase 84 Total Protein 7.5 Albumin 4.2 Lipase Cancelled 183.5 EGFR Beta HCG, Quant Total Beta HCG Urine Color Urine Appearance Urine pH Ur Specific [place] Urine Protein Urine Glucose (UA) Urine Ketones Urine Blood Urine Nitrite Urine Bilirubin Urine Urobilinogen Ur Leukocyte Esterase Urine WBC (Auto) Urine RBC (Auto) Squamous Epi Cells Auto Urine Mucus (Auto) Urine Ascorbic Acid Urine HCG, Qual Critical Laboratory Results Reviewed: No Critical Results - Radiology Results Critical Radiology Results Reviewed: No Critical Results Discharge - Discharge Clinical Impression: Nausea vomiting and diarrhea, Dehydration, Encounter for screening for COVID-19 Condition: Stable Disposition: HOME, SELF-CARE Instructions: COVID-19 Guidance for Persons Under Investigation, Antinausea Medication ([facility]), Diarrhea, Nonspecific ([facility]), Intravenous (IV) Fluids ([facility]), Vomiting ([facility]) Additional Instructions: Return immediately for any new or worsening symptoms Followup with your primary care provider, call tomorrow to make a followup appointment Prescriptions: Promethazine HCl [Phenergan 25 mg Tablet] 25 mg PO Q6H PRN #10 tablet PRN Reason: Referrals: ELLY CARCAMO MD [ACTIVE STAFF] - Follow up as needed
--- NOTE | 2020-07-16 17:36 | RADIOLOGY REPORT (SQ) ---
EXAM DESCRIPTION: U/S OB TRANSVAG W/DOPPLER IMAGES COMPLETED DATE/TIME: 07/16/2020 4:05 pm REASON FOR STUDY: abdominal cramping COMPARISON: None. TECHNIQUE: Transvaginal static and realtime grayscale images acquired of the pelvis. Additional joss cted spectral and color Doppler images recorded. All images stored on PACs. bHCG: Not available CLINICAL DATES: LMP is 05/22/2020 for clinical gestational age is 7 weeks 6 days LIMITATIONS: None. FINDINGS: FETUS: Single Living intrauterine . ULTRASOUND EGA: 6 weeks 1 day ULTRASOUND JAMES: 03/10/2021 EFW: Not applicable less than 20 weeks. CRL: 0.44 cm FHR: 130 beats per minute. SURVEY: No visualized anomalies. AMNIOTIC FLUID: Adequate amount. PLACENTA: Not yet developed due to early gestation. SUBCHORIONIC BLEED: No SIZE OF BLEED: Not applicable. UTERUS: No masses. No anomalies. CERVICAL LENGTH: 2.7 cm Closed. RIGHT ADNEXA: Normal ovary with normal vascular flow. No adnexal free fluid. No adnexal masses. LEFT ADNEXA: Normal ovary with normal vascular flow. No adnexal free fluid. No adnexal masses. FREE FLUID: None. OTHER: No other significant finding. IMPRESSION: LIVING INTRAUTERINE . EGA 6 weeks 1 day Trimester of : First trimester - 0 to 13 weeks. TECHNICAL DOCUMENTATION: JOB ID: [id number] [employer]- All Rights Reserved rev Reading location - IP/workstation name: [email or web address]
[2020-07-16 17:40] LABS: ABSOLUTE BASOPHILS # (AUTO) 0.1 10^3/uL (0.0-0.2); ABSOLUTE LYMPHOCYTES (AUTO) 1.7 10^3/uL (0.5-4.7); ABSOLUTE MONOCYTES (AUTO) 0.6 10^3/uL (0.1-1.4); ABSOLUTE NEUT (AUTO) 11.8 10^3/uL (1.7-8.2); BASOPHILS % (AUTO) 0.5 % (0-2); EOSINOPHILS % (AUTO) 0.1 % (0-6); HEMATOCRIT 39.6 % (36.0-47.0); HEMOGLOBIN 13.4 g/dL (12.0-15.5); LYMPHOCYTES % (AUTO) 11.8 % (13-45); MEAN CORPUSCULAR HGB CONC 33.8 g/dL (32.0-36.0); MEAN CORPUSCULAR VOLUME 89 fl (80-97); MONOCYTES % (AUTO) 4.1 % (3-13); PLATELET COUNT 498 10^3/uL (150-450); RED BLOOD COUNT 4.45 10^6/uL (3.72-5.28); RED CELL DISTRIBUTION WIDTH 15.4 % (11.5-14.0); SEGMENTED NEUTROPHILS % (AUTO) 83.5 % (42-78); TOTAL CELLS COUNTED % (AUTO) 100 %; WHITE BLOOD COUNT 14.1 10^3/uL (4.0-10.5)
[2020-07-16 17:46] LABS: APPEARANCE,URINE CLEAR; BILIRUBIN,URINE NEGATIVE (NEGATIVE); COLOR,URINE YELLOW; GLUCOSE, URINE NEGATIVE (NEGATIVE); KETONES,URINE 80 mg/dL (NEGATIVE); LEUKOCYTE ESTERASE,URINE NEGATIVE (NEGATIVE); NITRITE,URINE NEGATIVE (NEGATIVE); PROTEIN,URINE 30 mg/dL (NEGATIVE); URINE SPECIFIC GRAVITY 1.029
[2020-07-16] MEDS ORDERED: RINGERS SOLUTION,LACTATED 1,000 ML IV ONE (18:00)
[2020-07-16 19:23] LABS: ALBUMIN 4.2 g/dL (3.5-5.0); ALKALINE PHOSPHATASE 84 U/L (38-126); ANION GAP 9 (5-19); ASPARTATE AMINO TRANSFERASE 21 U/L (14-36); BILIRUBIN,DIRECT 0.2 mg/dL (0.0-0.4); BILIRUBIN,TOTAL 0.5 mg/dL (0.2-1.3); BLOOD UREA NITROGEN 8 mg/dL (7-20); CALCIUM 9.3 mg/dL (8.4-10.2); CARBON DIOXIDE 25 mmol/L (22-30); CHLORIDE 104 mmol/L (98-107); GLUCOSE 108 mg/dL (75-110); POTASSIUM 4.1 mmol/L (3.6-5.0); TOTAL PROTEIN 7.5 g/dL (6.3-8.2)
[2020-07-16 20:16] VITALS: BP 140/74
== END 2020-07-16 20:14 | disposition home or self-care (01) ==
LOC: ER 14:59
DX: O21.9 Vomiting of pregnancy, unspecified (principal); O26.891 Other specified pregnancy related conditions, first trimester; R19.7 Diarrhea, unspecified; O99.281 Endocrine, nutritional and metabolic diseases complicating pregnancy, first trimester; E86.0 Dehydration; Z3A.00 Weeks of gestation of pregnancy not specified; Z20.822 Contact with and (suspected) exposure to COVID-19
CPT/HCPCS: 99285; 96361; 96374; 36415; 84702; 83690; 85025; 87635; 81025; 80053; 81001; 76817; 93976; J2765; J7030; J7120; C9803